=== PATIENT | female | born 1930 | race Caucasian/White ===

== ENCOUNTER 2017-02-02 16:57 | Inpatient (IN) | payer MEDICARE, OTHER ==
[~2017-02-02] VITALS: Ht 160 cm; Wt 89.0 kg
--- NOTE | ~2017-02-02 | CN ---
PATIENT NAME:CHENTE NAQVI MEDICAL RECORD: [id number] : 34 LOCATION:[facility].2301 ADMIT DATE: 02/02/17 ACCOUNT: [id number] CONSULTING PHYSICIAN: YUNIOR GODOY MD REFERRING PHYSICIAN: JAMES DOMINGUEZ DO DATE OF CONSULTATION: 02/03/2017 HISTORY OF PRESENT ILLNESS: Ms. Naqvi is an 86-year-old female, very well known to me. The patient was admitted yesterday after the patient having a fall, brought into the ER and found out the patient has a broken dislocated distal right femur. She has also known COPD. This morning, rapid response was called. The patient has acute mental status changes, the patient was hypotensive and the patient was transferred to the ICU. Her blood pressure was in 50s and she has a white cell count of 44,000 and there were EKG changes, suggestion for acute [place]. Now, the patient is very weak and frail. There is acute mental status change, the history was taken mainly by reviewing the patient's note and talking to the nursing staff. REVIEW OF SYSTEMS: As in history of present illness. PAST MEDICAL HISTORY: 1. COPD. 2. History of pneumonia. 3. History of obstructive sleep apnea. 4. Type 2 diabetes mellitus. 5. Peripheral vascular disease. 6. Chronic anemia. 7. History of chronic bronchitis. 8. 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 9. Congestive heart failure. 10. Coronary artery disease. PAST SURGICAL HISTORY: 1. She has multiple fractures, status post repair. 2. History of thrombectomy. ALLERGIES: SHE IS ALLERGIC TO PENICILLIN AND CIPRO. PRESENT MEDICATIONS: On [place] was reviewed. PERSONAL AND SOCIAL HISTORY: The patient is mainly wheelchair bound. She was a chronic smoker in the past. She is a nondrinker. FAMILY HISTORY: Noncontributory. PHYSICAL EXAMINATION: GENERAL: Now, the patient is very weak and lethargic. VITAL SIGNS: The blood pressure is 62/29, pulse is 66, respirations 16, temperature 96.8. SpO2 is 94% on 3-4 L nasal cannula. HEENT: Conjunctivae are pale. Sclerae are not icteric. NECK: Supple. There was elevated JVD. CHEST: There are bilateral crackles and wheezing. HEART: Rate and rhythm is regular, normal sound, no murmur. ABDOMEN: Soft. Bowel sounds present. RECTAL: Deferred. CONSULT REPORT [id number] CHENTE NAQVI EXTREMITIES: No cyanosis, no clubbing. There is 2+ pedal edema. SKIN: Warm. Peripheral pulses are 1+. CENTRAL NERVOUS SYSTEM: There are no obvious cranial nerve abnormalities, but the patient was very weak and lethargic. LABORATORY DATA: CBC: The WBC is 44.7, hemoglobin 10, hematocrit 33.8 and the platelet count 271. Chemistry: Sodium 140, potassium 5.8, bicarb is 26.9, BUN is 63, creatinine is 3, calcium 7.7. The proBNP 3001. IMAGING: Chest radiograph, there are diffuse bilateral infiltrate. The chest x-ray of the pelvis showed a right femur fracture. IMPRESSION: 1. Axpvw-yy-kjpqzhe hypoxic respiratory failure. 2. Septic shock. 3. Pneumonia, bilateral, possible source of sepsis. 4. Acute renal failure, most likely secondary to acute tubular necrosis secondary to sepsis. 5. Pulmonary edema consistent with congestive heart failure, most likely systolic dysfunction. 6. EKG suggestive of myocardial infarction. 7. Chronic obstructive pulmonary disease, acute exacerbation. 8. Fracture, right femur. 9. History of obstructive sleep apnea. 10. Acute mental status changes. RECOMMENDATIONS: 1. Start her on vancomycin IV, cefepime IV, doxycycline IV, methylprednisolone IV, get a central line, get a CVP, IV fluid resuscitation. 2. Follow up on lactic acid level. 3. Follow up on the cardiac enzymes. 4. We will consult nephrology. The prognosis is poor. 5. Discussed with Dr. Ji Plascencia. Dr. Plascencia talked to the patient's son, SAVITA, and they decided to make her DNR. Dr. Dominguez, thank you for involving me in the care of Ms. Naqvi. CRITICAL CARE TIME: 45 minutes. TRANSINT:[id number] Voice Confirmation ID: [id number] DOCUMENT ID: [id number] YUNIOR GODOY MD CC: JAMES DOMINGUEZ DO [id number] DICTATION DATE: 02/03/17 1028 GRAPHICS EDITOR: 02/03/17 1507 ADM IN [address] [place] [address]
--- NOTE | ~2017-02-02 | PN ---
PATIENT:CHENTE SANCHEZ MEDICAL RECORD: [id number] LOCATION:[facility] ADMISSION DATE: 02/02/17 PROGRESS NOTE HISTORY OF PRESENT ILLNESS: An 86-year-old female. The patient with history of very minimal ambulation, who was trying to stand grinder her van, fell, landing on her right knee, complained of acute pain, went to the Emergency Room and found to have comminuted distal femur fracture. PAST MEDICAL HISTORY: Significant for recurrent lower gastrointestinal bleed, anemia, recurrent C. diff colitis, severe COPD, diabetes, B12 deficiency anemia, anemia of chronic disease, chronic kidney disease, peripheral vascular disease, gout, chronic edema, severe venous stasis, generally followed by the wound care clinic with Dr. Mon. FAMILY HISTORY: Unknown. She is adopted. ALLERGIES: REPORTED TO [facility]. CURRENT MEDICATIONS: Allopurinol, Tessalon Perles, multiple inhalers, Plavix, tramadol, ferrous sulfate, guaifenesin, probiotics, Toujeo, gabapentin, Lasix, hydroxyzine, potassium chloride, Singulair, labetalol. REVIEW OF SYSTEMS: GENERAL: Limited historian presently, no known change in weight or appetite. HEENT: Denies cephalgia. Admits to decreased vision presently. Denies dysphagia. CARDIOVASCULAR: Denies chest pain. PULMONARY: Denies hemoptysis. GASTROINTESTINAL: Denies hematemesis, hematochezia or melena. GENITOURINARY: Chronic dysuria, incontinence. MUSCULOSKELETAL: Right knee pain and swelling, acute trauma secondary to fall at the back of her van. PHYSICAL EXAMINATION: VITAL SIGNS: Temperature 98.1, blood pressure 81/56, heart rate 69, respirations 17, O2 sats 96% on supplemental O2. NEUROLOGICAL: Alert and oriented. HEENT: Head is atraumatic. Has appearance of facial droop, caregivers deny any acute change. Throat: No erythema. NECK: Supple, no JVD. HEART: Regular rate and rhythm. LUNGS: Bilateral expiratory wheeze, rhonchi. ABDOMEN: Soft and nontender. Bowel sounds all 4 quadrants. EXTREMITIES: Present times 4. Small effusion, ecchymosis, right knee distal femur. LABORATORY DATA: CBC: White count 44.7, hemoglobin 10, hematocrit 33.8, platelets 271, neutrophils 94.7. Chemistry shows sodium of 140, potassium 5.8, chloride 104, bicarb 26.9, BUN 63, creatinine 3, glucose 142. INR is 1.05. PT is 13.6. ProBNP is 3000. ASSESSMENT AND PLAN: 1. Distal right femur fracture. Ortho consulted. 2. Okxio-gh-zxmtobf renal failure. Cautious hydration, monitor. PROGRESS NOTE [id number] CHENTE SANCHEZ 3. Chronic obstructive pulmonary disease with exacerbation. Supportive care. We will consult pulmonology. The patient will have a difficult time coming off the vent after surgery. Also, we will obtain blood and sputum cultures, urine cultures, empiric antibiotics. 4. Diabetes. Sliding scale insulin. 5. Hypotension, hold blood pressure medicines. Cautious hydration. 6. insurance case manager to verify code status and placement options after surgery recovery when cleared by ortho and pulmonology, poor long-term prognosis. 7. With the extreme leukocytosis, we will obtain peripheral blood smear, possibly reactionary and possible infectious process, but also concern due to the extremely high white count of neoplastic process. 8. Facial droop, concern for cerebrovascular accident. We will obtain CT of the head without. TRANSINT:[id number] Voice Confirmation ID: [id number] DOCUMENT ID: [id number] JAMES DOMINGUEZ DO CC: [id number] DICTATION DATE: 02/03/17749 MANAGER OF COMMUNITY RELATIONS: 02/03/17 0847 ADM IN [facility] [address] [id number]
[~2017-02-02 16:57] MED LIST: BACTROBAN CREAM15 GM TP; BAYER CHEWABLE81 MG PO; BYSTOLIC5 MG PO; CHERRY FRUIT EXTRACT PO; DOXYCYCLINE HY100 M2 PO; FERROUS SULFAT325 MG PO; GEMFIBROZIL600 MG PO; GLUCOTROL 5 MG T5 MG PO; INVANZ1 G/VIAL IV; LANTUS INSULIN10 ML SC; LASIX40 MG PO; LIPITOR10 MG PO; LOPID600 MG PO; MIDAMOR5 MG PO; MUCINEX600 MG PO; NYSTATIN1 PWD TP; OMNICEF300 MG PO; PLAVIX75 MG PO; POTASSIUM CHLO10 ME1 PO; POTASSIUM CHLOR8 ME1 PO; PREDNISONE10 MG; PREDNISONE5 MG PO; PROBIOTIC PO; PULMICORT0.5 MG/21 INH; STERAPRED DS 1010 MG; TEMOVATE30 GM TP; TRIAMCINOLONE A60 M1; TUSSIONEX PENN473 ML PO; VAGIFEM10 MCG VG; VANCOMYCIN250 MG/51 PO; XOPENEX 0.0.63 MG/3; XOPENEX 1.1.25 MG/3 UPD; ZITHROMAX250 MG PO; ZYLOPRIM100 MG PO
[2017-02-02 20:19] LABS: HEMATOCRIT 34.5 % (36.0-48.0); HEMOGLOBIN 10.4 g/dL (12-16); MCH 26.3 pg (26.0-34.0); MCHC 30.1 g/dL (31.0-37.0); MCV 87.1 fL (80.0-100.0); MEAN PLATELET VOLUME 9.9 fL (7.4-10.4); PLATELET COUNT 200 10x3/uL (130-400); RBC 3.96 10x6/uL (4.00-5.40); RDW 15.5 % (11.5-14.5); WBC 23.8 10x3/uL (4.8-10.8)
[2017-02-02 20:32] LABS: APTT 23.5 SECONDS (22.8-39.4); INR 1.05 (0.85-1.17); PROTIME 13.6 SECONDS (11.6-15.0)
[2017-02-02 20:42] LABS: EOSINOPHILS 5 % (0-7); LYMPHOCYTES 9 % (15-50); MONOCYTES 3 % (2-11); NEUTROPHILS 83 % (40-80); PLATELET ESTIMATE NORMAL
[2017-02-02 20:43] LABS: ANION GAP 14.4 mmol/L (8-16); BILIRUBIN - TOTAL 0.49 mg/dL (0.2-1.3); CALCIUM 7.8 mg/dL (8.5-10.1); CARBON DIOXIDE 27.9 mmol/L (21.0-32.0); CREATININE - SERUM 2.3 mg/dL (0.6-1.3); POTASSIUM - SERUM 5.3 mmol/L (3.5-5.1); PROTEIN - SERUM 5.6 g/dL (6.4-8.2)
[2017-02-03] VITALS (60 sets, daily range): BP systolic 53–138; BP diastolic 0–103; Ht 160 cm; Wt 89.0 kg
--- NOTE | 2017-02-03 04:41 | NUR ---
BLADDER SCAN REVEALED 146
[2017-02-03 04:57] LABS: WBC 44.7 10x3/uL (4.8-10.8)
[2017-02-03 04:58] LABS: BASOPHILS 0.1 % (0-2); EOSINOPHILS 0.1 % (0-7); HEMATOCRIT 33.8 % (36.0-48.0); IMMATURE GRANULOCYTES 0.8 % (0-5); LYMPHOCYTES 1.9 % (15-50); MCH 26.1 pg (26.0-34.0); MCHC 29.6 g/dL (31.0-37.0); MCV 88.3 fL (80.0-100.0); MEAN PLATELET VOLUME 11.1 fL (7.4-10.4); MONOCYTES 2.4 % (2-11); NEUTROPHILS 94.7 % (40-80); PLATELET COUNT 271 10x3/uL (130-400); RBC 3.83 10x6/uL (4.00-5.40); RDW 15.5 % (11.5-14.5)
[2017-02-03 05:03] LABS: ANION GAP 14.9 mmol/L (8-16); CALCIUM 7.7 mg/dL (8.5-10.1); CARBON DIOXIDE 26.9 mmol/L (21.0-32.0); POTASSIUM - SERUM 5.8 mmol/L (3.5-5.1)
--- NOTE | 2017-02-03 06:35 | NUR ---
BOLUS [address] GONZALES
--- NOTE | 2017-02-03 09:26 | NUR ---
KEITH spoke with patients SAVITA Payne (son) at [phone] & updated him on his moms status and question her code status as asked by Dr Gomez. Elmer wanted her to still be a full code at this time and would like to talk to Dr Gomez. Elmer also stated that he was going to review his mothers paperwork and he would get back with me. KEITH called Dr Gomez's office and gave him the son's number for him to call him.
--- NOTE | 2017-02-03 09:41 | NUR ---
0800-ENTERED PT'S ROOM. ALERT TO SELF AND TIME ONLY. ATTEMPTED TO REORIENT, BUT WAS ONLY SUCCESSFUL FOR APPROXIMATELY 3 MINUTES. PUPILS EQUAL, ROUND, AND REACTIVE TO LIGHT, ACCOMIDATING WELL. DROOP NOTED TO L EYE AND L SIDE OF MOUTH. TACHICARDIA NOTED ON AUSCULTATION. REGULAR RHYTHM HOWEVER. CRACKLES NOTED TO ALL UPPER LOBES OF LUNGS. 250 BOLUS ADMINISTERED BY EDDIE WOOD, FINISHED. SWITCHED TO NS AT 100CC'S/HR. DIMINISHED TO LOWER LOBES BILAT. BOWEL SOUNDS HYPOACTIVE X4 QUADS. CAMILO CATHETER IN PLACE DRAINING CLEAR YELLOW URINE TO GRAVITY APPROXIMATELY 100CC'S OF URINE TO COLLECTION BAG. PT R SIDE LAYING. WEAK PEDAL PULSES BILAT. TOES BLUE AND COLD BILAT WITH BRISK CAP REFILL. SPOKE WITH DR. OBRIEN BRIEFLY REGARDING BLOOD PRESSURE AND WBC COUNT. NO NEW ORDERS REC'D. 08- NOTIFIED BY DALE SO, THAT PT BP WAS 62/29. ASKED EDDIE FIELDS, TO HELP ME WITH PT ASSESSMENT. WE BOTH AGREED TO CALL A RAPID RESPONSE BASED OFF OF CURRENT PATIENT LABS AND STATUS. RAPID RESPONSE CALLED. ICU NURSE EDDIE SUH, ENTERED ROOM WITH EDDIE ALBERT. EDDIE ALBERT, LEFT, AND EDDIE SUH, STAYED TO ASSIST. 0845- RT THERAPY AT BEDSIDE OBTAINING EKG. SINUS TACH WITH 1ST DEGREE AV BLOCK. RT STUCK PT MULTIPLE TIMES TO ATTEMPT TO OBTAIN ABG'S. 2ND 250 FLUID BOLUS ON NS STARTED. 0900- BOX BLANK MACHINE OPERATOR AT BEDSIDE ATTEMPTING TO OBTAIN VENOUS SAMPLE FOR LABS. UNSUCCESSFUL. I ATTEMPTED WELL, BUT WAS UNSUCCESSFUL. EDDIE FIELDS, STATED WE WOULD PROBABLY NEED A CENTRAL LINE FOR BLOOD SAMPLES. 09- PT TRANSFERRED TO ICU VIA BED.
--- NOTE | 2017-02-03 09:55 | NUR ---
REC'D VIA BED, AWAKE AND CONFUSED, [place], HEARING AID IN LEFT EAR, EYES GLOSSY, BP 105/60 HR 68, O2 4L NC, SAT 88, TEMP 97.2 LEFT AC PIV WITH NS 150 ML/HR, VANC 1 GM, SECOND BP 66/21, DOPAMINE STARTED AT 5MCG, NOT HELPING BP, CHANGED TO LEVAPHED PER DR. GODOY, STARTED AT 10 MCG, CAMILO TO GRVITY WITH CLEAR YELLOW DRAINAGE TO BAG, 1010 DR PIZANO AT BEDSIDE, PC TO [facility] COOUNSLED RE; PROGNOSIS AND CODE STATUS WOUL LIKE TO KEEP A FULL CODE AT THIS TIME 1025 PC BACK FROM [facility] LOUR[place] SANCHEZ WILL MAKE HER A DNR AT THIS TIME, NEEDED SOME TIME TO CONSIDER PROGNOSIS 1035 BLOOD DRAWN, BY PHELEBOTOMIST, VASCULAR NURSE AT BEDSIDE FOR MIDLINE/PICC INSERTION, CONSENT GIVEN BY POA TO PROCEED
[2017-02-03 10:23] LABS: BASOPHILS 0 % (0-2); EOSINOPHILS 0 % (0-7); HEMATOCRIT 33.5 % (36.0-48.0); IMMATURE GRANULOCYTES 1.1 % (0-5); LYMPHOCYTES 2.4 % (15-50); MCH 26.2 pg (26.0-34.0); MCHC 29.9 g/dL (31.0-37.0); MCV 87.9 fL (80.0-100.0); MEAN PLATELET VOLUME 10.5 fL (7.4-10.4); MONOCYTES 2.8 % (2-11); NEUTROPHILS 93.7 % (40-80); PLATELET COUNT 231 10x3/uL (130-400); RBC 3.81 10x6/uL (4.00-5.40); RDW 15.6 % (11.5-14.5)
[2017-02-03 10:25] LABS: WBC 60.7 10x3/uL (4.8-10.8)
--- NOTE | 2017-02-03 10:39 | NUR ---
250 NS BOLUS, INITIATED, PIV 22G TO RIGHT HAND, BY VACSULAR NURSE
[2017-02-03 10:41] LABS: ALBUMIN 2.6 g/dL (3.4-5.0); ALKALINE PHOSPHATASE 110 U/L (46-116); CALC OSMOLALITY 296 mosm/kg (275-300); CALCIUM 7.6 mg/dL (8.5-10.1); CARBON DIOXIDE 21.1 mmol/L (21.0-32.0); CHLORIDE - SERUM 102 mmol/L (98-107); CREATININE - SERUM 3.1 mg/dL (0.6-1.3); GLUCOSE 141 mg/dL (74-106); PROTEIN - SERUM 5.7 g/dL (6.4-8.2); SODIUM 138 mmol/L (136-145); UREA NITROGEN 65 mg/dL (7-18); eGFR NON AFRICAN AMERICAN 15 mL/min (90-120)
[2017-02-03 10:49] LABS: CKMB 7.7 U/L (0.0-3.6); CREATINE KINASE 175 UL (21-215); PRO BNP 4329 pg/mL (0-450); TROPONIN-I 0.043 ng/mL (0.000-0.060)
[2017-02-03 10:50] LABS: ALT (SGPT) 13 U/L (10-68)
--- NOTE | 2017-02-03 11:55 | NUR ---
PHONE CALL FROM SON WHO IS POA, STATES HE HAS FOUND THE PAPER WORK FOR OPWER OF NURSING TECHN AND WOULD LIKE TO CHANGE CODE STATUS BACK TO FULL CODE
--- NOTE | 2017-02-03 12:45 | NUR ---
REFUSED TO HAVVE CT DONE BECAUSE SHE DOES NOT WANT TO BE MOVED, HAVING LOTS OF PAIN FROM FEMUR FX. PLACED CT ON HOLD
--- NOTE | 2017-02-03 15:00 | NUR ---
SON THAT [place] IN [place] BROUGHT IN COPY OF POWER OF SAUSAGE MIXER AND ADVANCED DIRECTIVES , TOMMY ON CHART, SON FORM [place] [facility] IN [facility], HOME CAREGIVERS AT BEDSIDE
--- NOTE | 2017-02-03 15:00 | NUR ---
VASSOPRESSIN GTT INTITIATED AT 0.01 MCG PER ORDER, NO OTHER ACUTE CHANGE FROM PREVIOUS
[2017-02-03 15:05] LABS: CREATINE KINASE 497 UL (21-215)
[2017-02-03 15:06] LABS: CKMB 16.7 U/L (0.0-3.6)
--- NOTE | 2017-02-03 18:00 | NUR ---
CONTINUES ON PRESSORS, VSS, NO ACUTE CHANGE FROM PREVIOUS ASSESSMENT
--- NOTE | 2017-02-03 19:10 | NUR ---
Received patient resting in bed with eyes open, assessment completed per flowsheet. Patient AO x2, disoriented to time/situation. Eyes PERRLA @ 3mm with brisk response, sclera is white. S1/S2 noted NSR with possible 1st degree block on telemetry with HR 76, rhythmic and regular. Breathing is shallow and unlabored on 6L via NC with O2 sat 96%, crackles noted bilateral upper and mid with diminished lower. Abdomen is distended and soft with bowel sounds hypoactive x4, non-tender. Ramos secured in place, clear yellow urine noted in collection. Full ROM upper extremities and L lower with R limited from femur fracture. Skin is cool/dry to touch with cap refill < 3 sec, discoloration noted hands/feet with slight purple coloration. R AC PICC noted with dressing CDI, Levophed @ 30mcg/kg / 3 amp Bicarb GTT @ 125ml/hr / NS/ABX @ 20ml/hr / Vasopressin @ 0.03 units/min infusing. Patient c/o chronic aching R lower extremitity, repositioned and PRN medication provided. No further needs at this time, all VSS and will continue to monitor.
[2017-02-03 19:13] LABS: CREATININE - SERUM 3.4 mg/dL (0.6-1.3)
[2017-02-03 19:23] LABS: ANION GAP 28.1 mmol/L (8-16); CARBON DIOXIDE 13.4 mmol/L (21.0-32.0)
[2017-02-03 19:25] LABS: CALCIUM 6.7 mg/dL (8.5-10.1); POTASSIUM - SERUM 6.5 mmol/L (3.5-5.1)
--- NOTE | 2017-02-03 20:30 | NUR ---
Trialysis Cath placed by Dr Hernandez at bedside without difficulty. X-ray ordered to verify placement Patient tolerated well, All VSS and will continue to monitor.
--- NOTE | 2017-02-03 22:30 | NUR ---
ABG resulted, patient pH 6.99. Paged Renal application packager, spoke to Dr Mccall. Orders recieved for 2 amps Bicarb, given as ordered.
--- NOTE | 2017-02-03 23:00 | NUR ---
Reassessment completed per flowsheet, patient laying in bed with eyes open. Patient AO x2, disoriented to time/situation. L side facial weakness noted, patient speech is garbled. S1/S2 noted NSR with possible 1st degree block with HR 76, rhytmic and regular. Breathing is shallow and unlabored on 6L via NC, O2 sat 93%. All pulses weakly palpable with cap refill < 3 sec, skin is cool/dry to touch with discoloration noted hands/feet. Patient c/o chronic aching pain 5/10 R leg, repositioned and will provide PRN medication when available. No further needs at this time, all VSS and will continue to monitor.
[2017-02-04] VITALS (38 sets, daily range): BP systolic 59–134; BP diastolic 20–97
--- NOTE | 2017-02-04 03:00 | NUR ---
Reassessment completed per flowsheet, patient resting in bed with eyes closed. Patient AO x2, disoriented to time/situation. Patient awareness seems to be decreasing, patient refuses to respond to questions at times. S1/S2 noted NSR with possible 1st degree block with HR 71, rhythmic and regular. Breathing is shallow on Venturi mask @ 55% with O2 sat 92%, crackles noted bilateral upper and mid with diminished lower. All pulses weakly palpable with cap refill < 3 sec, full ROM upper extremities and L lower with RLE fracture impaired ROM. Patient c/o pain 2/10 chronic aching RLE, repositioned and will provide PRN medication. No further needs at this time, all VSS and will continue to monitor.
--- NOTE | 2017-02-04 03:00 | NUR ---
Patient O2 changed to Venturi mask @ 55% to maintain O2 sat, no difficulties at this time.
[2017-02-04 04:55] LABS: BASOPHILS 0.1 % (0-2); EOSINOPHILS 0 % (0-7); HEMATOCRIT 28.4 % (36.0-48.0); HEMOGLOBIN 8.3 g/dL (12-16); LYMPHOCYTES 4.9 % (15-50); MCH 26.5 pg (26.0-34.0); MCHC 29.2 g/dL (31.0-37.0); MCV 90.7 fL (80.0-100.0); MEAN PLATELET VOLUME 11.5 fL (7.4-10.4); PLATELET COUNT 233 10x3/uL (130-400); RBC 3.13 10x6/uL (4.00-5.40)
[2017-02-04 04:56] LABS: WBC 50.3 10x3/uL (4.8-10.8)
--- NOTE | 2017-02-04 05:00 | NUR ---
Patient resting in bed with eyes closed, breathing is shallow and slightly labored. AM labs collected without difficulty, patient does not respond to commands. Eyes PERRLA @ 3mm with brisk response, sclera is white. Patient breathing appears more labored, skin pallor is pale and dry. Discoloration present on hands/feet, cap refill < 3 sec. Patient does not respond to questions about pain level, will continue to monitor.
--- NOTE | 2017-02-04 06:46 | HP ---
PATIENT: CHENTE SANCHEZ MEDICAL RECORD: [id number] ACCOUNT: [id number] LOCATION:[facility] D2301 : 32 ADMISSION DATE: 02/02/17 HISTORY AND PHYSICAL EXAMINATION DATE OF ADMISSION: 02/02/2017 CHIEF COMPLAINT: Leg pain. HISTORY OF PRESENT ILLNESS: The patient is an 86-year-old female who apparently was being transported to [facility]. Apparently, one of the caregiver states that the patient was needing to stop to urinate. She could not wait. Apparently, she stood. Her legs slipped landing on her right knee. She complained of having pain. She presented to the Emergency Room where she was found to have a broken dislocated distal right femur. PAST MEDICAL HISTORY: Significant that she has had a history of having rheumatoid arthritis. She has had history of having gout. She had an RI in the past. She has had hypertension and hyperlipidemia. The patient had diabetes mellitus, anemia, dependent edema and COPD. She continues to smoke. ALLERGIES: SHE IS ALLERGIC TO CIPRO AND STATES INSULIN. MEDICATIONS: Include allopurinol 100 mg 1 p.o. b.i.d., aspirin 81 mg once a day, budesonide 0.5 mg/2 mL 2 puffs b.i.d. Bystolic 5 mg once daily, Plavix 75 mg once a day, ferrous sulfate 325 one p.o. b.i.d. Fluticasone 50 mcg 2 sprays in each naris once daily, Lasix 40 mg 2 tablets in the morning and 1 every evening, hydroxyzine 50 mg one 3 times a day, KCl 10 mEq 1 tablet 3 times a day, Lantus 15 units at bedtime, levalbuterol 0.63 mg/3 mL two puffs q.4 hours p.r.n. shortness of breath, Singulair 10 mg once a day, nystatin powder p.r.n. and tramadol p.r.n. FAMILY HISTORY: Unknown. The patient was adopted. HABITS: The patient has been a 1 to 1-1/2 pack per day smoker in her adult life. She is a retired professor, post-graduate education. She is a . PAST SURGICAL HISTORY: The patient has had cataract surgery in 2011. She has had no other problems appreciated. REVIEW OF SYSTEMS: CONSTITUTIONAL: She denies any headaches, seizure or syncope. She denies change in visual or auditory acuity. PULMONARY: She denies shortness of breath, cough, congestion, history of asthma or bronchitis. CARDIOVASCULAR: No chest pain, palpitation, PND or orthopnea. GASTROINTESTINAL: No chronic nausea, vomiting, melena or hematochezia. GENITOURINARY: No urgency, frequency, or dysuria. PHYSICAL EXAMINATION: GENERAL: The patient is somewhat sedated now. She has received IV pain medication. She is alert. She is oriented times 3. VITAL SIGNS: Her temperature is 97.8, her pulse 56, respirations 18 and blood pressure 140/68. HISTORY AND PHYSICAL [id number] CHENTE SANCHEZ: Head is normocephalic. No lesions. Ears: TMs clear. Eyes: Pupils equal, round and reactive to light. Her extraocular movements are intact. Her nasal cavity, oral cavity and oropharynx clear. NECK: Supple. There is no adenopathy. HEART: Has a regular rate and rhythm without any murmurs, gallops or rubs. LUNGS: Clear. LABORATORY AND DIAGNOSTIC DATA: X-ray did reveal a displaced right distal femur fracture, questionable stress fracture of the posterior calcaneus. Soft tissue swelling on the lateral malleolus. As stated above, she did have a displaced comminuted fracture of the right distal femur with posterior angulation. CBC is not resulted nor has her chemistries. ASSESSMENT: Status post fall with right distal femur fracture, questionable stress fracture of the right posterior calcaneus, history of chronic obstructive pulmonary disease, diabetes mellitus, hyperkalemia and renal insufficiency. PLAN: The patient is admitted. We will check her CBC to make sure that she does not need to be transfused. She will be placed on insulin sliding scale. Orthopedic consultation will be obtained. She will be given O2 supplementation, updraft therapy as well. TRANSINT:[id number] Voice Confirmation ID: [id number] DOCUMENT ID: [id number] MARTHA GONZALES MD at 0646 CC: [id number] DICTATION DATE: 02/02/171950 LABORER LANDSCAPE: 02/02/172058 ADM [id number] [place] [address]
--- NOTE | 2017-02-04 07:00 | NUR ---
PT REPORT REC'D, PT CARE ASSUMED. PT SON AND CAREGIVER AT THE BEDSIDE, ALL QUESTIONS ANSWERED. FLUIDS INFUSING TO RIGHT AC PICC, DRESSING CDI. RIGHT IJ TRIALYSIS S/L'ED, DRESSING CDI. CAMILO CATHETER FREE OF KINKS TO GRAVITY WITH URINE RETURN. SHIFT ASSESSMENT COMPLETED, SEE FLOW SHEET. ROOM FREE OF CLUTTER, CALL LIGHT IN REACH, BED ALARM ACTIVE, WILL CONTINUE TO MONITOR PT.
--- NOTE | 2017-02-04 07:10 | NUR ---
PTS SON SPEAKING WITH DR. RIVAS
--- NOTE | 2017-02-04 07:16 | NUR ---
SPOKE WITH PT'S SON, ADRIENNE, "RIGHT NOW, I DO NOT WANT TO INTUBATE MY MOTHER, UNTIL I CAN GET A CLEARER PICTURE WITH DR. OBRIEN." COPY OF POA PAPERWORK PLACED ON PTS CHART.
--- NOTE | 2017-02-04 07:42 | NUR ---
DR. OBRIEN AT THE BEDSIDE, SPEAKING WITH FAMILY, PLANS FOR COMFORT MEASURES AND HOSPICE TO EVALUATE PT.
--- NOTE | 2017-02-04 09:08 | OP ---
PATIENT NAME: CHENTE SANCHEZ MEDICAL RECORD: [id number] :34 LOCATION:.[facility] D.2301 ADMISSION DATE:02/02/17 SURGEON: JIM MORRIS MD DATE OF OPERATION: 02/03/2017 PREOPERATIVE DIAGNOSES: 1. Distal femoral fracture. 2. Acute renal failure without access for hemodialysis. 3. Confusion. POSTOPERATIVE DIAGNOSES: 1. Distal femoral fracture. 2. Acute renal failure without access for hemodialysis. 3. Confusion. PROCEDURE: Insertion of right internal jugular Trialysis catheter. SURGEON: Jim Morris MD. STORE PROTECTION SPECIALIST: None. BLOOD LOSS: Minimal. ANESTHESIA: Local. COMPLICATIONS: None. I chose placement of a Trialysis catheter rather than a central line as this patient may require dialysis. The right neck was sterilely prepped and draped. Local anesthetic was used to infiltrate the skin and subcutaneous tissues at the base of the right neck. The right internal jugular vein was percutaneously accessed in an antegrade fashion. A guidewire passed easily. A small skin dylan was accomplished. A vessel dilator was used to dilate the subcutaneous tract. A triple-lumen Trialysis catheter, which is a non-cuffed dialysis catheter was inserted to the hub. It was sutured in place times 3. All lumens flushed easily and aspirated dark, nonpulsatile blood. A stat portable chest x-ray is pending. TRANSINT:[id number] Voice Confirmation ID: [id number] DOCUMENT ID: [id number] JIM MORRIS MD at 0908 CC: [id number] DICTATION DATE: 02/03/172137 MUSIC ASSISTANT: 02/04/17 0040 ADM IN [id number] [place] [address]
[2017-02-04 09:12] LABS: BILIRUBIN - TOTAL 0.79 mg/dL (0.2-1.3); CARBON DIOXIDE 15.7 mmol/L (21.0-32.0); CREATININE - SERUM 3.8 mg/dL (0.6-1.3); MAGNESIUM - SERUM 2.6 mg/dL (1.8-2.4); PROTEIN - SERUM 4.6 g/dL (6.4-8.2); VANCOMYCIN - RANDOM 7.5 ug/mL (10.0-20.0)
[2017-02-04 09:13] LABS: ANION GAP 33.1 mmol/L (8-16)
[2017-02-04 09:14] LABS: CALCIUM 6.6 mg/dL (8.5-10.1); PHOSPHOROUS 13.6 mg/dL (2.5-4.9); POTASSIUM - SERUM 6.8 mmol/L (3.5-5.1)
--- NOTE | 2017-02-04 09:30 | NUR ---
PT SONS SPEAKING WITH YANI, SKIP MINER BLASTING
--- NOTE | 2017-02-04 09:37 | NUR ---
Order rec'd for [facility] evaluation. Met with son's, Elmer (SAVITA) & Herman. Explained hospice order has been rec'd. Elmer is questioning why a third republican is needed. Explained hospice services. Answered his questions. Referral has been faxed and called to Rosalia with [facility]. Waiting evaluation.
--- NOTE | 2017-02-04 10:06 | NUR ---
* Is the patient Alert and Oriented? No 0 * PCP Dr. Gomez 0 * ADLs Partial Dependent 0 * Partial ADLs (Assistance needed) Ambulation Bathing Dressing Toileting 0 * List name and contact numbers for known caregivers / representatives who currently or will assist patient after discharge: Surinder Naqvi [phone] Adilson Naqvi [phone]
--- NOTE | 2017-02-05 13:34 | CN ---
PATIENT NAME:CHENTE SANCHEZ MEDICAL RECORD: [id number] : 34 LOCATION:[id number] ADMIT DATE: 02/02/17 ACCOUNT: [id number] CONSULTING PHYSICIAN: JUSTO PIZANO MD REFERRING PHYSICIAN: JAMES DOMINGUEZ DO DATE OF CONSULTATION: 02/03/2017 CARDIOLOGY CONSULTATION DIAGNOSES: 1. Hypotension. 2. Shock. 3. Sepsis. 4. Femur fracture. 5. Abnormal ECG. HISTORY OF PRESENT ILLNESS: This is an 86-year-old female well known to critical care service here. She is bed bound. She comes in now after a fall with a femur fracture. She has hypotension with systolic blood pressure in the 60s despite pressor, heart rate is in the 90s. She has a gross ST depression and T-wave inversions on her EKG inferolaterally compatible with ongoing ischemia. Troponin is pending. No previous cardiac history. Her white count has increased to 44,000. She is not yet intubated. PHYSICAL EXAMINATION: GENERAL APPEARANCE: Well-nourished, well-developed, appears stated age. Level of distress, comfortable. PSYCHIATRIC: Mental status, alert, normal affect. Orientation, oriented to time, place and person. EYES: Lids and conjunctiva, noninjected. No discharge, no pallor. ENT: Lips, teeth, gums, normal dentition. Oropharynx, no cyanosis, no pallor. NECK: Carotid arteries, bilateral normal upstroke, no bruits, no thrills. JUGULAR VEINS: No jugular venous pressure or distention. CERVICAL LYMPH NODES: Nontender, nonenlarged. THYROID: Not enlarged. Nontender. No nodules. LUNGS: Respiratory effort, unlabored. CHEST: Normal curvature. No thoracic deformity. No chest wall tenderness. Percussion, resonant. Auscultation, clear. No wheezes, no rales, no rhonchi. CARDIOVASCULAR: Precordial exam, nondisplaced. No heaves or pericardial thrills. Rate and rhythm, regular. Heart sounds, normal S1, normal S2. No S3, no gallop, no rub. Systolic murmur, not heard. Diastolic murmur, not heard. EXTREMITIES: No cyanosis, no edema. Peripheral pulses, full and equal in all extremities, except as noted. No bruits appreciated. ABDOMEN: Soft, nondistended. Normal aorta. No bruit. Nontender. No masses. Liver, nontender, no hepatomegaly. Spleen, nontender, no splenomegaly. MUSCULOSKELETAL: No joint tenderness. No joint swelling. No erythema. NEUROLOGICAL: Normal gait, normal strength, normal tone. SKIN: Warm and dry. OVERALL IMPRESSION: Multisystem organ failure with sepsis. She has acute renal failure with creatinine increasing over 3, sepsis with hypotension that has been unresponsive to pressors as of yet and gross ischemic changes on EKG. This prognosis is extremely poor for a positive long-term outcome: The best option would be comfort care DNR in our opinion. No aggressive cardiac workup or treatment is necessary at this time due to the multisystem organ failure CONSULT REPORT [id number] CHENTE SANCHEZ. TRANSINT:[id number] Voice Confirmation ID: [id number] DOCUMENT ID: [id number] JUSTO PIZANO MD at 1334 CC: [id number] DICTATION DATE: 02/03/17 1012 COIL TIER: 02/03/17 1352 DIS IN 02/04/17 [id number] [place] [address]
== END 2017-02-04 10:45 | disposition hospice, inpatient (51) | DRG 871 ==
LOC: D.ER 16:57 → D.MS 20:40 → D.ICU 20:40
PROVIDERS: Family Medicine; Internal Medicine Nephrology; Physician Assistant; ADMIT Family Medicine
PROC: 02HV33Z Insertion of Infusion Device into Superior Vena Cava, Percutaneous Approach (ICD-10-PCS; principal; 2017-02-03)
PROC: 02HV33Z Insertion of Infusion Device into Superior Vena Cava, Percutaneous Approach (ICD-10-PCS; 2017-02-03)
PROC: B548ZZA Ultrasonography of Superior Vena Cava, Guidance (ICD-10-PCS; 2017-02-03)
PROC: 0T9B70Z Drainage of Bladder with Drainage Device, Via Natural or Artificial Opening (ICD-10-PCS; 2017-02-03)
DX: A41.9 Sepsis, unspecified organism (principal); J18.9 Pneumonia, unspecified organism; R65.21 Severe sepsis with septic shock; N17.0 Acute kidney failure with tubular necrosis; I63.9 Cerebral infarction, unspecified; J44.0 Chronic obstructive pulmonary disease with (acute) lower respiratory infection; J44.1 Chronic obstructive pulmonary disease with (acute) exacerbation; I13.0 Hypertensive heart and chronic kidney disease with heart failure and stage 1 through stage 4 chronic kidney disease, or unspecified chronic kidney disease; I50.20 Unspecified systolic (congestive) heart failure; N18.4 Chronic kidney disease, stage 4 (severe); S72.401A Unspecified fracture of lower end of right femur, initial encounter for closed fracture; E11.22 Type 2 diabetes mellitus with diabetic chronic kidney disease; Z79.4 Long term (current) use of insulin; E11.649 Type 2 diabetes mellitus with hypoglycemia without coma; Z66 Do not resuscitate; R41.0 Disorientation, unspecified; G47.33 Obstructive sleep apnea (adult) (pediatric); E87.5 Hyperkalemia; D64.9 Anemia, unspecified; W05.0XXA Fall from non-moving wheelchair, initial encounter; R94.31 Abnormal electrocardiogram [ECG] [EKG]; E78.5 Hyperlipidemia, unspecified; M06.9 Rheumatoid arthritis, unspecified; Z99.3 Dependence on wheelchair; Z72.0 Tobacco use

== ENCOUNTER 2017-02-04 10:51 | Inpatient (IN) | payer OTHER ==
[~2017-02-04] VITALS: Ht 160 cm; Wt 94.1 kg
[2017-02-04 11:09] VITALS: BP 72/24; Ht 160 cm; Wt 94.1 kg
--- NOTE | 2017-02-04 11:22 | NUR ---
PT ADMITTED TO HOSPICE, YANI MORGAN AT THE BEDSIDE WITH PTS FAMILY AND CAREGIVERS.
--- NOTE | 2017-02-04 12:15 | NUR ---
PT FAMILY AT THE BEDSIDE, ALL QUESTIONS ANSWERED, WILL CONTINUE TO MONITOR PT.
--- NOTE | 2017-02-04 14:08 | NUR ---
DR. AMEZQUITA AT THE BEDSIDE TO PRONOUNCE PT .
--- NOTE | 2017-02-04 14:10 | NUR ---
CONTACTED PIZARRO WITH PTS TIME OF , CERTIFCATE FILLED OUT, SEE CERTIFICATE.
--- NOTE | 2017-02-04 14:45 | NUR ---
JAMIR AT THE BEDSIDE TO TRANSFER BODY TO [facility], NO VALUABLES OR BELONGINGS AT THE BEDSIDE, NO FAMILY AT THE BEDSIDE.
== END 2017-02-04 14:45 | DRG 951 ==
LOC: D.ICU 10:51
PROVIDERS: ADMIT Legal Medicine
DX: Z51.5 Encounter for palliative care (principal)